=== PATIENT | male | born 1980 | race African-American/Black ===

== ENCOUNTER 2022-09-28 12:49 | Observation (INO) | payer BC ==
[2022-09-28 12:57] VITALS: BMI 30.9
[2022-09-28] MEDS ORDERED: ACETAMINOPHEN 1000 MG/100 ML BAG IVPB ONE (14:06)
[2022-09-28] MEDS ORDERED: LACTATED RINGERS SOLUTION 1000 ML INFUS.BAG IV ONE (14:06)
[2022-09-28] MEDS ORDERED: ACETAMINOPHEN INJECTION 100 ML IVPB ONE (14:09)
[2022-09-28 14:58] LABS: BASO % 0.6 % (0-2.0); EOS % 1.2 % (0-4.5); HEMOGLOBIN 15.8 GM/dL (11.7-16.9); MCH 30.9 pg (25.7-33.7); MCHC 34.3 g/dl (32.0-35.9); MEAN CELL VOLUME 90.3 fl (80-96); MEAN PLT VOLUME 7.8 fl (7.5-11.1); MONO % 8.2 % (3.8-10.2); PH,URINE 5.5 (5.0-8.0); PLATELET COUNT 257 10^3/uL (134-434); RDW 13.8 % (11.9-15.9); URINE APPEARANCE CLEAR; URINE BILIRUBIN NEGATIVE (NEGATIVE); URINE COLOR YELLOW; URINE GLUCOSE (UA) NEGATIVE (NEGATIVE); URINE KETONE 1+ (NEGATIVE); URINE LEUK ESTERASE NEGATIVE (NEGATIVE); URINE NITRITE NEGATIVE (NEGATIVE); URINE PROTEIN TRACE (NEGATIVE); WHITE BLOOD COUNT 6.9 K/mm3 (4.0-10.0)
[2022-09-28 15:12] LABS: INR 1.15 (0.83-1.09); PROTHROMBIN TIME (PATIENT) 13.3 SEC (9.7-13.0)
[2022-09-28 15:23] LABS: POTASSIUM 5.6 mmol/L (3.5-5.1)
[2022-09-28 15:25] LABS: CALCIUM 9.3 mg/dL (8.5-10.1)
[2022-09-28 15:26] LABS: ALBUMIN 3.6 g/dl (3.4-5.0); BLOOD UREA NITROGEN 17.6 mg/dL (7-18)
[2022-09-28 15:28] LABS: CREATININE 1.2 mg/dL (0.55-1.3)
[2022-09-28 15:30] LABS: TOT PROT 7.9 g/dl (6.4-8.2)
[2022-09-28] MEDS ORDERED: CEFTRIAXONE 2 GM in DEXTROSE 5%-WATER - 50 ML IVPB ONE (18:11)
[2022-09-28] MEDS ORDERED: CEFTRIAXONE 2 GM/100 ML BAG IVPB ONE (18:14)
[2022-09-28] MEDS ORDERED: MIDAZOLAM HCL 2 MG/2 ML SINGLE DOSE VIAL ONE (18:35)
[2022-09-28] MEDS ORDERED: PROPOFOL 20 ML ONE ×2 (18:35→18:40)
[2022-09-28] MEDS ORDERED: LIDOCAINE HCL/PF 2% SDV 5ML VIAL ONE (18:37)
[2022-09-28] MEDS ORDERED: BUPIVACAINE HCL/PF 0.25% (2.5MG/ML) 10 ML VIAL IJ ONE ×2 (19:33→19:37)
[2022-09-28] MEDS ORDERED: SODIUM CHLORIDE 1,000 ML IV SCH (21:45)
[2022-09-28] MEDS ORDERED: morphine SULFATE 4 MG/ML VIAL IVPUSH PRN (21:45)
[2022-09-28] MEDS ORDERED: ONDANSETRON 4 MG/2 ML VIAL IVPUSH PRN (22:01)
[2022-09-28] MEDS ORDERED: LACTATED RINGERS SOLUTION 1,000 ML IV SCH (22:15)
[2022-09-29] MEDS: KETOROLAC TROMETHAMINE 15 MG/ML VIAL IVPUSH PRN ×2 (03:10→11:07)
[2022-09-29 10:42] LABS: BASO % 0.1 % (0-2.0); HEMATOCRIT 43.1 % (35.4-49); HEMOGLOBIN 14.7 GM/dL (11.7-16.9); LYMPH % 14.9 % (8-40); MCH 30.8 pg (25.7-33.7); MCHC 34.1 g/dl (32.0-35.9); MEAN CELL VOLUME 90.3 fl (80-96); MONO % 7.3 % (3.8-10.2); NEUT % 77.7 % (42.8-82.8); PLATELET COUNT 286 10^3/uL (134-434); RBC 4.77 M/mm3 (4.00-5.60); RDW 13.5 % (11.9-15.9); WHITE BLOOD COUNT 7.5 K/mm3 (4.0-10.0)
[2022-09-29 11:13] LABS: POTASSIUM 4.1 mmol/L (3.5-5.1)
[2022-09-29 11:17] LABS: CALCIUM 9.2 mg/dL (8.5-10.1)
[2022-09-29 11:21] LABS: CREATININE 1.2 mg/dL (0.55-1.3)
[2022-09-29] MEDS ORDERED: oxyCODONE HCL 5 MG TABLET PO PRN (14:59)
[2022-09-29] MEDS: ACETAMINOPHEN 500 MG TABLET (FP) PO SCH ×2 (16:50→23:40)
[2022-09-30] MEDS: ACETAMINOPHEN 500 MG TABLET (FP) PO SCH (07:02)
[2022-09-30 08:51] VITALS: BP 137/77; PULSE 86; RESP 17; TEMP 98.7
[2022-09-30] MEDS: KETOROLAC TROMETHAMINE 15 MG/ML VIAL IVPUSH PRN (09:55)
== END 2022-09-30 10:50 | disposition home or self-care (01) ==
LOC: JER 12:49 → SUATTDRO 18:40 → JASUSAT 18:40 → J5S 18:51 → JASUSAT 23:18 → J5S 23:18
PROVIDERS: ADMIT Internal Medicine; ATTEND Family Medicine
PROC: 3E0337Z Introduction of Electrolytic and Water Balance Substance into Peripheral Vein, Percutaneous Approach (ICD-10-PCS; 2022-09-28)
PROC: 3E033NZ Introduction of Analgesics, Hypnotics, Sedatives into Peripheral Vein, Percutaneous Approach (ICD-10-PCS; 2022-09-28)
PROC: 3E03329 Introduction of Other Anti-infective into Peripheral Vein, Percutaneous Approach (ICD-10-PCS; 2022-09-28)
PROC: 0DTJ4ZZ Resection of Appendix, Percutaneous Endoscopic Approach (ICD-10-PCS; principal; 2022-09-29)
DX: K35.80 Unspecified acute appendicitis (principal); E78.5 Hyperlipidemia, unspecified; F17.210 Nicotine dependence, cigarettes, uncomplicated
CPT/HCPCS: 36415; 71046-TC-FY; 74177-TC; 80048; 80053; 81003; 85025; 85610; 85730; 86850; 86900; 86901; 87086; 87635; 88304-TC; 94760; 99285-25; G0378